=== PATIENT | male | born 1990 | race Two or more races ===

== ENCOUNTER 2020-03-23 09:38 | Inpatient (IN) | payer OTHER ==
[~2020-03-23] VITALS: Ht 182.9 cm; Wt 72.0 kg
[2020-03-23 10:09] LABS: COVID AG,FIA SOURCE NASOPHARYNGEAL
[2020-03-23] MEDS ORDERED: CIPROFLOXACIN HCL 0.3% 2.5 ML OPHTHALMIC SOLUTION OU ONE (10:45)
[2020-03-23 10:46] LABS: EOSINOPHILS % (AUTO) 0.6 % (1.0-6.0); HEMATOCRIT 42.1 % (41-53); HEMOGLOBIN 14.2 g/dL (13.5-17.5); LYMPHOCYTES # (AUTO) 1.4 K/uL (1.0-4.8); LYMPHOCYTES % (AUTO) 23.9 % (22.0-44.0); MEAN CORPUSCULAR HEMOGLOBIN 29.2 pg (26.0-34.0); MEAN CORPUSCULAR HGB CONC 33.6 G/dL (31.0-37.0); MEAN CORPUSCULAR VOLUME 87 fL (80-100); MONOCYTES # (AUTO) 0.4 K/uL (0.1-1.0); MONOCYTES % (AUTO) 5.9 % (2.0-9.0); NEUTROPHILS # (AUTO) 4.1 K/uL (1.8-7.7); NEUTROPHILS % (AUTO) 68.6 % (40.0-70.0); PLATELET COUNT (AUTO) 178 K/uL (150-450); RED BLOOD CELL COUNT(AUTO) 4.86 MIL/uL (4.50-5.90); RED CELL DISTRIBUTION WIDTH 13.5 % (11.5-14.5)
[2020-03-23 10:50] LABS: ANION GAP 4 mmol/L (8-16); CALCIUM, TOTAL 9.8 mg/dL (8.8-10.5); CARBON DIOXIDE 30 mmol/L (22-29); CHLORIDE 99 mmol/L (98-107); CREATININE 0.71 mg/dL (0.60-1.30); GLOMERULAR FILTR. RATE CALC > 60 mL/min (>60); GLUCOSE,RANDOM 113 mg/dL (70-110); POTASSIUM 4.7 mmol/L (3.5-5.1); SODIUM SERUM 133 mmol/L (136-145); UREA NITROGEN, BLOOD 13 mg/dL (7-18)
[2020-03-23] MEDS ORDERED: 0.9% SODIUM CHLORIDE 10 ML SYRINGE IVP PRN (11:15)
[2020-03-23] MEDS ORDERED: ACETAMINOPHEN 325 MG TABLET PO PRN ×2 (11:15→12:30)
[2020-03-23] MEDS ORDERED: MAGNESIUM HYDROXIDE SUSPENSION 30 ML UDCUP PO PRN (12:30)
[2020-03-23] MEDS ORDERED: ALBUTEROL SULFATE 2.5 MG/0.5 ML NEB SOLUTION NEB PRN (12:30)
[2020-03-23] MEDS ORDERED: ONDANSETRON HCL 4 MG/2 ML VIAL IVP PRN (12:30)
[2020-03-23] MEDS ORDERED: BISACODYL 10 MG RECTAL RECTAL SUPPOSITORY PR PRN (12:30)
[2020-03-23] MEDS ORDERED: ZOLPIDEM TARTRATE 5 MG TABLET PO PRN (12:30)
[2020-03-23] MEDS ORDERED: IPRATROPIUM BROMIDE 0.5 MG/2.5 ML NEB SOLUTION NEB PRN (12:30)
[2020-03-23 12:35] VITALS: BP 144/82
[2020-03-23] MEDS: CIPROFLOXACIN HCL 0.3% 2.5 ML OPHTHALMIC SOLUTION OU SCH ×5 (13:47→22:48)
[2020-03-23 20:38] VITALS: BP 139/80
[2020-03-23] MEDS: DOCUSATE SODIUM 100 MG CAPSULE PO SCH (20:48)
[2020-03-24 04:20] VITALS: BP 128/76
[2020-03-24] MEDS: CIPROFLOXACIN HCL 0.3% 2.5 ML OPHTHALMIC SOLUTION OU SCH ×9 (05:58→22:00)
[2020-03-24] MEDS: DOCUSATE SODIUM 100 MG CAPSULE PO SCH ×3 (07:53→21:05)
[2020-03-24 08:00] VITALS: BP 118/64
[2020-03-24 15:51] VITALS: BP 120/68
[2020-03-24 21:00] VITALS: BP 115/62
[2020-03-25 04:30] VITALS: BP 114/57
[2020-03-25] MEDS: CIPROFLOXACIN HCL 0.3% 2.5 ML OPHTHALMIC SOLUTION OU SCH ×9 (05:01→23:19)
[2020-03-25 08:14] VITALS: BP 119/73
[2020-03-25] MEDS: DOCUSATE SODIUM 100 MG CAPSULE PO SCH ×2 (08:33→21:00)
[2020-03-25 10:11] LABS: BASOPHILS % (AUTO) 0.5 % (0.0-2.0); EOSINOPHILS % (AUTO) 1.7 % (1.0-6.0); HEMATOCRIT 39.2 % (41-53); LYMPHOCYTES # (AUTO) 1.6 K/uL (1.0-4.8); LYMPHOCYTES % (AUTO) 32.3 % (22.0-44.0); MEAN CORPUSCULAR HEMOGLOBIN 28.5 pg (26.0-34.0); MEAN CORPUSCULAR HGB CONC 33.2 G/dL (31.0-37.0); MEAN CORPUSCULAR VOLUME 86 fL (80-100); MONOCYTES # (AUTO) 0.4 K/uL (0.1-1.0); MONOCYTES % (AUTO) 8.9 % (2.0-9.0); NEUTROPHILS # (AUTO) 2.8 K/uL (1.8-7.7); NEUTROPHILS % (AUTO) 56.6 % (40.0-70.0); PLATELET COUNT (AUTO) 290 K/uL (150-450); RED BLOOD CELL COUNT(AUTO) 4.56 MIL/uL (4.50-5.90); RED CELL DISTRIBUTION WIDTH 13.3 % (11.5-14.5)
[2020-03-25 10:22] LABS: ANION GAP 4 mmol/L (8-16); CARBON DIOXIDE 32 mmol/L (22-29); CHLORIDE 101 mmol/L (98-107); GLOMERULAR FILTR. RATE CALC > 60 mL/min (>60); GLUCOSE,RANDOM 105 mg/dL (70-110); POTASSIUM 4.2 mmol/L (3.5-5.1); SODIUM SERUM 137 mmol/L (136-145); UREA NITROGEN, BLOOD 11 mg/dL (7-18)
[2020-03-25 10:28] LABS: ALANINE AMINOTRANSFERASE 13 U/L (12-78); ALBUMIN 3.2 g/dL (3.4-5.0); ALKALINE PHOSPHATASE 63 U/L (46-116); ASPARTATE AMINOTRANSFERASE 10 U/L (15-37); BILIRUBIN,TOTAL 0.2 mg/dL (0.1-1.0); TOTAL PROTEIN, SERUM 7.5 g/dL (6.4-8.2)
[2020-03-25] MEDS ORDERED: CILO2.5OS OU (11:10)
[2020-03-25 20:32] VITALS: BP 137/90
[2020-03-26 04:11] VITALS: BP 116/77
[2020-03-26] MEDS: CIPROFLOXACIN HCL 0.3% 2.5 ML OPHTHALMIC SOLUTION OU SCH (05:28)
== END 2020-03-26 05:58 | DRG 125 ==
LOC: EEVIPCON 09:38 → EMS 09:38 → 6N 11:21 → 6S 12:20
PROVIDERS: ADMIT Hospitalist; ATTEND Hospitalist
DX: H10.33 Unspecified acute conjunctivitis, bilateral (principal); J45.909 Unspecified asthma, uncomplicated; R56.9 Unspecified convulsions; F17.210 Nicotine dependence, cigarettes, uncomplicated; F11.90 Opioid use, unspecified, uncomplicated; Z88.8 Allergy status to other drugs, medicaments and biological substances; Z03.818 Encounter for observation for suspected exposure to other biological agents ruled out
CPT/HCPCS: 87426; 36415-L1; 36415-TC; 71045-TC; U0003-CS

== ENCOUNTER 2020-04-06 15:29 | Inpatient (IN) | payer OTHER ==
[~2020-04-06] VITALS: Ht 182.9 cm; Wt 67.5 kg
[~2020-04-06 15:29] MED LIST: CILO2.5OS OU
[2020-04-06 16:49] LABS: BASOPHILS % (AUTO) 0.8 % (0.0-2.0); HEMATOCRIT 40.9 % (41-53); HEMOGLOBIN 13.7 g/dL (13.5-17.5); LYMPHOCYTES # (AUTO) 1.6 K/uL (1.0-4.8); MEAN CORPUSCULAR HEMOGLOBIN 28.6 pg (26.0-34.0); MEAN CORPUSCULAR HGB CONC 33.5 G/dL (31.0-37.0); MEAN CORPUSCULAR VOLUME 85 fL (80-100); MONOCYTES # (AUTO) 0.4 K/uL (0.1-1.0); MONOCYTES % (AUTO) 6.9 % (2.0-9.0); NEUTROPHILS # (AUTO) 3.1 K/uL (1.8-7.7); NEUTROPHILS % (AUTO) 59.3 % (40.0-70.0); PLATELET COUNT (AUTO) 157 K/uL (150-450); RED BLOOD CELL COUNT(AUTO) 4.79 MIL/uL (4.50-5.90); RED CELL DISTRIBUTION WIDTH 13.9 % (11.5-14.5)
[2020-04-06 17:01] LABS: ANION GAP 9 mmol/L (8-16); CALCIUM, TOTAL 9.4 mg/dL (8.8-10.5); CARBON DIOXIDE 28 mmol/L (22-29); CHLORIDE 104 mmol/L (98-107); CREATININE 0.75 mg/dL (0.60-1.30); GLOMERULAR FILTR. RATE CALC > 60 mL/min (>60); GLUCOSE,RANDOM 99 mg/dL (70-110); POTASSIUM 4.2 mmol/L (3.5-5.1); SODIUM SERUM 141 mmol/L (136-145); UREA NITROGEN, BLOOD 21 mg/dL (7-18)
[2020-04-06 17:07] LABS: ALANINE AMINOTRANSFERASE 19 U/L (12-78); ALBUMIN 4.2 g/dL (3.4-5.0); ALKALINE PHOSPHATASE 77 U/L (46-116); ASPARTATE AMINOTRANSFERASE 15 U/L (15-37); BILIRUBIN,TOTAL 0.3 mg/dL (0.1-1.0); TOTAL PROTEIN, SERUM 8.5 g/dL (6.4-8.2)
[2020-04-06] MEDS ORDERED: 0.9% SODIUM CHLORIDE 10 ML SYRINGE IVP PRN (18:45)
[2020-04-06] MEDS ORDERED: ONDANSETRON HCL 4 MG/2 ML VIAL IVP PRN (18:45)
[2020-04-06] MEDS ORDERED: ACETAMINOPHEN 325 MG TABLET PO PRN ×2 (18:45→22:15)
[2020-04-06 18:49] LABS: AMPHET/METH SCREEN,URINE NEGATIVE (NEGATIVE); BARBITURATE SCREEN, URINE NEGATIVE (NEGATIVE); BENZODIAZEPINES SCREEN,URINE NEGATIVE (NEGATIVE); CANNABINOID SCREEN,URINE NEGATIVE (NEGATIVE); COCAINE SCREEN,URINE NEGATIVE (NEGATIVE); METHADONE SCREEN, URINE NEGATIVE (NEGATIVE); OPIATE SCREEN,URINE NEGATIVE (NEGATIVE)
[2020-04-06 18:57] LABS: PHENCYCLIDINE SCREEN,URINE NEGATIVE (NEGATIVE)
[2020-04-06 21:27] VITALS: BP 130/66
[2020-04-06] MEDS ORDERED: CloNIDine HCL 0.1 MG TABLET PO PRN ×2 (22:15)
[2020-04-06] MEDS ORDERED: MAG HYDROX/AL HYDROX/SIMETH ES 30 ML SUSPENSION UDCUP PO PRN ×2 (22:15)
[2020-04-06] MEDS ORDERED: SODIUM CHLORIDE 0.45% 1,000 ML IV SCH (22:15)
[2020-04-06] MEDS ORDERED: HydrOXYzine PAMOATE 50 MG CAPSULE PO PRN ×2 (22:15)
[2020-04-06] MEDS ORDERED: IBUPROFEN 600 MG TABLET PO PRN ×2 (22:15)
[2020-04-06] MEDS: PROMETHAZINE HCL 25 MG TABLET PO PRN (22:46)
[2020-04-06] MEDS: SODIUM CHLORIDE 0.45% 1,000 ML IV SCH (22:47)
[2020-04-07] MEDS: TraZODone HCL 50 MG TABLET PO PRN ×2 (02:02→22:01)
[2020-04-07] MEDS: DICYCLOMINE HCL 10 MG CAPSULE PO PRN ×2 (02:02→22:01)
[2020-04-07 05:33] VITALS: BP 139/66
[2020-04-07] MEDS: BACLOFEN 10 MG TABLET PO PRN (05:46)
[2020-04-07] MEDS: CloNIDine HCL 0.1 MG TABLET PO SCH ×4 (05:47→22:01)
[2020-04-07 06:45] LABS: BASOPHILS % (AUTO) 0.6 % (0.0-2.0); HEMATOCRIT 43.3 % (41-53); HEMOGLOBIN 14.9 g/dL (13.5-17.5); LYMPHOCYTES # (AUTO) 1.8 K/uL (1.0-4.8); MEAN CORPUSCULAR HEMOGLOBIN 29.2 pg (26.0-34.0); MEAN CORPUSCULAR HGB CONC 34.3 G/dL (31.0-37.0); MEAN CORPUSCULAR VOLUME 85 fL (80-100); MONOCYTES # (AUTO) 0.4 K/uL (0.1-1.0); MONOCYTES % (AUTO) 8.8 % (2.0-9.0); NEUTROPHILS # (AUTO) 2.3 K/uL (1.8-7.7); NEUTROPHILS % (AUTO) 49.6 % (40.0-70.0); PLATELET COUNT (AUTO) 142 K/uL (150-450); RED BLOOD CELL COUNT(AUTO) 5.08 MIL/uL (4.50-5.90); RED CELL DISTRIBUTION WIDTH 13.8 % (11.5-14.5)
[2020-04-07 07:02] LABS: ALANINE AMINOTRANSFERASE 16 U/L (12-78); ALKALINE PHOSPHATASE 68 U/L (46-116); ANION GAP 11 mmol/L (8-16); ASPARTATE AMINOTRANSFERASE 16 U/L (15-37); BILIRUBIN,TOTAL 0.4 mg/dL (0.1-1.0); CALCIUM, TOTAL 9.3 mg/dL (8.8-10.5); CARBON DIOXIDE 28 mmol/L (22-29); CHLORIDE 101 mmol/L (98-107); CREATININE 0.66 mg/dL (0.60-1.30); GLOMERULAR FILTR. RATE CALC > 60 mL/min (>60); GLUCOSE,RANDOM 94 mg/dL (70-110); POTASSIUM 3.7 mmol/L (3.5-5.1); SODIUM SERUM 140 mmol/L (136-145); TOTAL PROTEIN, SERUM 8.6 g/dL (6.4-8.2); UREA NITROGEN, BLOOD 10 mg/dL (7-18)
[2020-04-07 08:00] VITALS: BP 124/74
[2020-04-07 09:11] VITALS: BP 124/74
[2020-04-07] MEDS: SODIUM CHLORIDE 0.45% 1,000 ML IV SCH (12:32)
[2020-04-07 15:36] VITALS: BP 126/76
[2020-04-07 20:35] VITALS: BP 120/70
[2020-04-07 23:00] VITALS: BP 118/69
[2020-04-08] VITALS (7 sets, daily range): BP systolic 119–138; BP diastolic 63–78
[2020-04-08] MEDS: ONDANSETRON HCL 4 MG/2 ML VIAL IVP PRN ×4 (01:31→22:08)
[2020-04-08] MEDS: SODIUM CHLORIDE 0.45% 1,000 ML IV SCH ×2 (01:41→13:46)
[2020-04-08] MEDS: PROMETHAZINE HCL 25 MG TABLET PO PRN (01:41)
[2020-04-08] MEDS: CloNIDine HCL 0.1 MG TABLET PO SCH ×4 (05:18→22:08)
[2020-04-08] MEDS: LORazepam 1 MG TABLET PO PRN (09:59)
[2020-04-08 13:08] LABS: BASOPHILS % (AUTO) 0.8 % (0.0-2.0); EOSINOPHILS % (AUTO) 0.1 % (1.0-6.0); HEMATOCRIT 42.3 % (41-53); HEMOGLOBIN 14.5 g/dL (13.5-17.5); LYMPHOCYTES # (AUTO) 1.3 K/uL (1.0-4.8); LYMPHOCYTES % (AUTO) 21.4 % (22.0-44.0); MEAN CORPUSCULAR HEMOGLOBIN 29.1 pg (26.0-34.0); MEAN CORPUSCULAR HGB CONC 34.2 G/dL (31.0-37.0); MEAN CORPUSCULAR VOLUME 85 fL (80-100); MONOCYTES # (AUTO) 0.2 K/uL (0.1-1.0); MONOCYTES % (AUTO) 3.8 % (2.0-9.0); NEUTROPHILS # (AUTO) 4.6 K/uL (1.8-7.7); NEUTROPHILS % (AUTO) 73.9 % (40.0-70.0); PLATELET COUNT (AUTO) 142 K/uL (150-450); RED BLOOD CELL COUNT(AUTO) 4.98 MIL/uL (4.50-5.90); RED CELL DISTRIBUTION WIDTH 13.8 % (11.5-14.5)
[2020-04-08 13:21] LABS: ANION GAP 9 mmol/L (8-16); CALCIUM, TOTAL 9.7 mg/dL (8.8-10.5); CARBON DIOXIDE 28 mmol/L (22-29); CHLORIDE 103 mmol/L (98-107); CREATININE 0.76 mg/dL (0.60-1.30); GLOMERULAR FILTR. RATE CALC > 60 mL/min (>60); GLUCOSE,RANDOM 116 mg/dL (70-110); POTASSIUM 4.5 mmol/L (3.5-5.1); SODIUM SERUM 140 mmol/L (136-145); UREA NITROGEN, BLOOD 14 mg/dL (7-18)
[2020-04-08 13:27] LABS: ALANINE AMINOTRANSFERASE 18 U/L (12-78); ALKALINE PHOSPHATASE 71 U/L (46-116); ASPARTATE AMINOTRANSFERASE 19 U/L (15-37); BILIRUBIN,TOTAL 0.5 mg/dL (0.1-1.0); TOTAL PROTEIN, SERUM 8.6 g/dL (6.4-8.2)
[2020-04-09 00:15] VITALS: BP 128/74
[2020-04-09] MEDS: SODIUM CHLORIDE 0.45% 1,000 ML IV SCH ×2 (03:24→16:45)
[2020-04-09 04:22] VITALS: BP 106/55
[2020-04-09] MEDS: CloNIDine HCL 0.1 MG TABLET PO SCH ×4 (05:51→21:50)
[2020-04-09 08:23] VITALS: BP 128/70
[2020-04-09 12:00] VITALS: BP 106/60
[2020-04-09] MEDS: LOPERAMIDE HCL 2 MG/15 ML SUSPENSION UDCUP PO PRN (13:26)
[2020-04-09] MEDS: ONDANSETRON HCL 4 MG/2 ML VIAL IVP PRN (13:27)
[2020-04-09] MEDS: LORazepam 1 MG TABLET PO PRN ×2 (13:27→21:50)
[2020-04-09 16:13] VITALS: BP 117/61
[2020-04-09 19:00] VITALS: BP 123/69
[2020-04-09] MEDS: PROMETHAZINE HCL 25 MG TABLET PO PRN (21:50)
[2020-04-10] MEDS: PROMETHAZINE HCL 25 MG TABLET PO PRN (03:08)
[2020-04-10] MEDS: LOPERAMIDE HCL 2 MG/15 ML SUSPENSION UDCUP PO PRN ×2 (04:58→22:13)
[2020-04-10 05:00] VITALS: BP 125/73
[2020-04-10] MEDS: LORazepam 1 MG TABLET PO PRN ×3 (05:01→22:13)
[2020-04-10] MEDS: CloNIDine HCL 0.1 MG TABLET PO SCH ×4 (06:07→22:00)
[2020-04-10 07:23] VITALS: BP 124/79
[2020-04-10] MEDS: SODIUM CHLORIDE 0.45% 1,000 ML IV SCH (09:26)
[2020-04-10 16:00] VITALS: BP 114/69
[2020-04-10] MEDS: DICYCLOMINE HCL 10 MG CAPSULE PO PRN ×2 (16:20→22:12)
[2020-04-10] MEDS: BACLOFEN 10 MG TABLET PO PRN (19:33)
[2020-04-10 19:34] VITALS: BP 107/57
[2020-04-10] MEDS: TraZODone HCL 50 MG TABLET PO PRN (23:14)
[2020-04-11 05:03] VITALS: BP 122/76
[2020-04-11] MEDS: LORazepam 1 MG TABLET PO PRN (05:03)
[2020-04-11] MEDS: DICYCLOMINE HCL 10 MG CAPSULE PO PRN (05:04)
[2020-04-11] MEDS: PROMETHAZINE HCL 25 MG TABLET PO PRN (05:04)
[2020-04-11] MEDS: CloNIDine HCL 0.1 MG TABLET PO SCH ×2 (05:04→12:45)
[2020-04-11 07:40] VITALS: BP 130/77
== END 2020-04-11 13:20 | DRG 897 ==
LOC: EMS 15:29 → 6S 19:00
PROVIDERS: ADMIT Hospitalist; ATTEND Hospitalist
DX: F11.23 Opioid dependence with withdrawal (principal); J45.909 Unspecified asthma, uncomplicated; Z87.891 Personal history of nicotine dependence; Z88.8 Allergy status to other drugs, medicaments and biological substances
CPT/HCPCS: G0480; J2405

== ENCOUNTER 2020-04-12 18:40 | Observation (INO) | payer OTHER ==
[~2020-04-12] VITALS: Ht 185.4 cm; Wt 81.9 kg
[2020-04-12 20:04] LABS: AMPHET/METH SCREEN,URINE NEGATIVE (NEGATIVE); BARBITURATE SCREEN, URINE NEGATIVE (NEGATIVE); BENZODIAZEPINES SCREEN,URINE NEGATIVE (NEGATIVE); CANNABINOID SCREEN,URINE NEGATIVE (NEGATIVE); COCAINE SCREEN,URINE NEGATIVE (NEGATIVE); METHADONE SCREEN, URINE NEGATIVE (NEGATIVE); OPIATE SCREEN,URINE NEGATIVE (NEGATIVE)
[2020-04-12 20:10] LABS: PHENCYCLIDINE SCREEN,URINE NEGATIVE (NEGATIVE)
[2020-04-12 20:21] LABS: LYMPHOCYTES # (AUTO) 3.1 K/uL (1.0-4.8); MEAN CORPUSCULAR HEMOGLOBIN 28.8 pg (26.0-34.0); MONOCYTES # (AUTO) 0.7 K/uL (0.1-1.0)
[2020-04-12] MEDS ORDERED: LevETIRAcetam 500 MG TABLET PO ONE (20:30)
[2020-04-12 20:36] LABS: HEMATOCRIT 46.2 % (41-53); MEAN CORPUSCULAR HGB CONC 34.7 G/dL (31.0-37.0); MEAN CORPUSCULAR VOLUME 83 fL (80-100); RED BLOOD CELL COUNT(AUTO) 5.55 MIL/uL (4.50-5.90); RED CELL DISTRIBUTION WIDTH 13.9 % (11.5-14.5)
[2020-04-12 20:40] LABS: ANION GAP 10 mmol/L (8-16); CALCIUM, TOTAL 9.3 mg/dL (8.8-10.5); CARBON DIOXIDE 25 mmol/L (22-29); CHLORIDE 101 mmol/L (98-107); CREATININE 0.73 mg/dL (0.60-1.30); GLOMERULAR FILTR. RATE CALC > 60 mL/min (>60); GLUCOSE,RANDOM 100 mg/dL (70-110); POTASSIUM 4.1 mmol/L (3.5-5.1); SODIUM SERUM 136 mmol/L (136-145); UREA NITROGEN, BLOOD 15 mg/dL (7-18)
[2020-04-12 20:46] LABS: ALANINE AMINOTRANSFERASE 18 U/L (12-78); ALBUMIN 4.2 g/dL (3.4-5.0); ALKALINE PHOSPHATASE 78 U/L (46-116); ASPARTATE AMINOTRANSFERASE 12 U/L (15-37); BILIRUBIN,TOTAL 0.4 mg/dL (0.1-1.0); TOTAL PROTEIN, SERUM 8.3 g/dL (6.4-8.2)
[2020-04-12 20:59] LABS: ACETAMINOPHEN < 2 mcg/mL (10-30)
[2020-04-12] MEDS ORDERED: ACETAMINOPHEN 325 MG TABLET PO PRN (21:45)
[2020-04-12] MEDS ORDERED: ONDANSETRON HCL 4 MG/2 ML VIAL IVP PRN (21:45)
[2020-04-12 21:47] LABS: SALICYLATE < 2.8 mg/dL (2.8-20.0)
[2020-04-12 22:10] VITALS: BP 122/69
[2020-04-12 22:35] LABS: PLATELET COUNT (AUTO) 102 K/uL (150-450)
[2020-04-12 22:36] LABS: BASOPHILS % (AUTO) 0.7 % (0.0-2.0); EOSINOPHILS % (AUTO) 2.8 % (1.0-6.0); LYMPHOCYTES % (AUTO) 33.7 % (22.0-44.0); MONOCYTES % (AUTO) 8.1 % (2.0-9.0); NEUTROPHILS % (AUTO) 54.7 % (40.0-70.0)
[2020-04-13 01:00] VITALS: BP 127/71
[2020-04-13 04:39] VITALS: BP 142/74
[2020-04-13] MEDS ORDERED: LevETIRAcetam 750 MG in DEXTROSE 5%-WATER 100 ML IV ONE (08:00)
[2020-04-13 08:10] VITALS: BP 137/72
[2020-04-13] MEDS ORDERED: SODIUM CHLORIDE 0.9% 250 ML IV ONE (08:43)
[2020-04-13] MEDS ORDERED: ENOXAPARIN SODIUM 40 MG/0.4 ML PF SYRINGE SQ SCH (09:00)
[2020-04-13 11:47] VITALS: BP 103/65
== END 2020-04-13 13:30 ==
LOC: EMS 18:42 → 5S 21:30 → INTOOBSV 21:30
PROVIDERS: ADMIT Internal Medicine; ATTEND Internal Medicine
DX: R55 Syncope and collapse (principal); R56.9 Unspecified convulsions; D69.6 Thrombocytopenia, unspecified
CPT/HCPCS: 36415; 70450; 71045; 80053; 80307; 84484; 85025; 87081; 93005; 93306; 93880; 96365; 99219; 99285; G0480 ×2; G0481; J0712; J7050; J7060